=== PATIENT | male | born 1970 | race Caucasian/White ===

== ENCOUNTER 2019-11-02 14:33 | Outpatient (CLI) | payer MEDICAID, SELFPAY ==
--- NOTE | ~2019-11-02 | XR_ITS ---
EXAMINATION: XR chest 2V 11/02/2019 15:57 INDICATION: Tobacco use. PROCEDURE: 2 view chest COMPARISON: No prior studies for comparison. FINDINGS: The lungs are clear. The cardiomediastinal silhouette is within normal limits. There are no pleural effusions. There is no pneumothorax suspected. IMPRESSION: 1: NO ACUTE CARDIOPULMONARY DISEASE. Reviewed, dictated and finalized at location A.
--- NOTE | ~2019-11-02 | XR_ITS ---
EXAMINATION: XR tibia fibula LT 2V DATE: 11/02/2019 15:57 INDICATION: Left lower leg mass. TECHNIQUE: 2 views of left tibia and fibula were obtained. COMPARISON: Ultrasound 11/02/2019 FINDINGS: Bone alignment is normal. No fracture. There is mild left knee osteoarthritis. There is a 2 mm radiopaque foreign body adjacent to the Achilles tendon. There is a contour bulge of the skin lat eral to the tibial condyles. No soft tissue calcifications. IMPRESSION: 1. Contour bulge of the skin lateral to the tibial condyles correlating with a cystic mass by ultraso und. Reviewed, dictated and finalized at location A. IMPRESSION: 1. Contour bulge of the skin lateral to the tibial condyles correlating with a cystic mass by ultrasound.
--- NOTE | ~2019-11-02 | US_ITS ---
EXAMINATION: US soft tissue LE LT DATE: 11/02/2019 15:54 INDICATION: Left lower leg lump for 2 years. TECHNIQUE: Multiple grayscale and Doppler ultrasound images of the left lower limb were obtained. COMPARISON: Left tibia and fibula radiographs 11/02/2019 FINDINGS: Lateral and distal to the left knee, there is a 3.9 x 1.8 x 3.9 cm subcutaneous multilocula nat cystic mass with septations measuring up to 2 mm in thickness. IMPRESSION: 1. Subcutaneous multiloculated cystic mass in the left lower leg. This finding is most likely a chron ic hematoma. Neoplasm cannot be excluded. Reviewed, dictated and finalized at location A. IMPRESSION: 1. Subcutaneous multiloculated cystic mass in the left lower leg. This finding is most likely a chronic hematoma. Neoplasm cannot be excluded.
== END 2019-11-02 14:34 | disposition home or self-care (01) ==
PROVIDERS: PCP Emergency Medicine; Visit Provider Emergency Medicine
DX: M79.89 Other specified soft tissue disorders (principal)
CPT/HCPCS: 71046; 73590; 76882